=== PATIENT | female | born 1950 | race Caucasian/White ===

== ENCOUNTER 2016-05-19 09:13 | Inpatient (IN) | payer MEDICARE, OTHER ==
--- NOTE | ~2016-05-19 | CT57 ---
[facility] A Service of [facility] RADIOLOGY TEXT RESULTS PATIENT: LLUVIA HANNA LOCATION: A 214- : 52 UNIT #: [id number] AGE: [address]: Tash Galicia MD SEX: F ORDER DR: [id number] [facility] [address] [facility]. [place], [place] [address] [id number] I MR#: [id number] #: [id number] NAME: LLUVIA HANNA : 1950 SEX: F STUDY DATE/TIME: 05/20/2016 21:08 UNIT: A ROOM: 214 STUDY DESCRIPTION: CT Chest Wo Cont Attending Physician: Tash Galicia M.D. Ordering Physician: Gauri Pompa M.D. Primary Care Physician: Generic Doctor Not In System MEDICAL IMAGING REPORT This report is preliminary unless electronic signature is present EXAM CT chest without contrast DATE 05/20/2016 HISTORY Hypotension. Pneumonia. Sepsis for 2 days. Shortness of breath. Hypertension. COMPARISON AP portable chest 05/19/[address] chest for comparison. PROCEDURE 5 mm noncontrast axial images through the chest. Sagittal and coronal reformatted images were obtained. This CT exam was performed with one or more of the following radiation dose reduction techniques: automatic exposure control, adjustment of mA and/or kV according to patient size, and iterative reconstruction. FINDINGS Dense atelectasis or consolidation is present within the right middle lobe. Small bilateral pleural effusions are present. There is mild posterior left basilar atelectasis. Scattered geographic areas of air trapping are seen predominately within the upper lobes. Heart size is within normal limits. Extensive calcified lymph nodes are present within mediastinum and bilateral hilar regions in keeping with old granulomas disease. Mild coronary calcifications. Thyroid gland within normal limits. Calcifications are present within the left upper renal pole in an area of what appears to be cortical thinning or scarring. Degenerative changes of the right shoulder with calcified loose bodies in the joint space. Degenerative endplate changes in the thoracic spine. [facility] A Service of [facility] RADIOLOGY TEXT RESULTS PATIENT: LLUVIA HANNA LOCATION: [facility] 214-01 : 52 UNIT #: [id number] AGE: [address]: Tash Galicia MD SEX: F ORDER DR: IMPRESSION 1. Dense consolidation or atelectasis within the right middle lobe. 2. Mild posterior left basilar atelectasis. 3. Small bilateral pleural effusions. 4. Densely calcified mediastinal and hilar lymph nodes in keeping with the appearance of benign calcified granulomatous disease. 5. Mild coronary artery calcifications. 6. Benign-appearing left renal capsular calcifications. 7. Degenerative changes of right shoulder with calcified loose bodies in the joint. Dictated by... Aurelia Rosas M.D. THIS IS AN ELECTRONICALLY VERIFIED REPORT Aurelia Rosas M.D. at 05/21/2016 10:02 AM BRIAN/catracho TD: 05/21/2016 09:34 JOB #: [id number] MEDICAL IMAGING REPORT COPY
--- NOTE | ~2016-05-19 | EKG ---
PATIENT: LLUVIA HANNA UNIT #: [id number] Ventricular Rate: 74 BPM Atrial Rate: 74 BPM P-R Interval: 144 ms QRS Duration: 84 ms Q-T Interval: 448 ms QTC Calculation(Bezet): 497 ms P [place]: 61 degrees Calculated R [place]: 36 degrees Calculated T [place]: 15 degrees Diagnosis Line: Normal sinus rhythm Diagnosis Line: Low voltage QRS Diagnosis Line: Nonspecific ST abnormality Diagnosis Line: Prolonged QT Diagnosis Line: Abnormal ECG Diagnosis Line: When compared with ECG of 17-NOV-2015 22:54, Diagnosis Line: No significant change was found Diagnosis Line: Confirmed by CHLOÉ TRENT MD ([id number]) on Diagnosis Line: 05/20/2016 4:08:28 PM INTERPRETING MD: TWAN MIXON
--- NOTE | ~2016-05-19 | CO ---
Unit #: [id number] #: [id number] Patient: LLUVIA HANNA [id number] [address] [place], [place] [address] [id number] I MR#: [id number] NAME: LLUVIA HANNA ROOM: 214 Age: 66 Sex: F Admission Date: 05/19/2016 : 1950 Attending Physician: Tash Galicia M.D. Primary Care Physician: Generic Doctor Not In System CONSULTATION REPORT CHIEF COMPLAINT Pancytopenia, rectal thickening, extensive granuloma in the lung. HISTORY OF PRESENT ILLNESS This is a 66-year-old female who has cerebral palsy. The patient has significant lower extremity weakness, multiple surgeries. Patient came to hospital with abdominal pain, nausea, vomiting. The patient also has presyncope. She was admitted on sepsis protocol and she is improving. The patient had a CT of the abdomen and pelvis. It shows rectal thickening. There is a granuloma in the lung. The patient had a CT of the chest. I spoke with the radiologist. There is extensive granuloma. It is causing atelectasis and consolidation in the right middle lobe. There is no sign of malignancy. Her CBC showed WBC 4.0, hemoglobin 10.5, MCV 88 and platelets 110. Her creatinine is 0.4. LFTs are normal. Iron study and B12 normal. I repeated the peripheral smear. There are no blasts. There is some mild left shift. There is early segmentation. At present she is comfortable. REVIEW OF SYSTEMS CONSTITUTIONAL: No fever, no chills, no sweats, no weight loss. EYES: No visual symptoms. EARS, NOSE AND THROAT: There is no runny nose or sore throat or difficulty hearing. CARDIOVASCULAR: No chest pain. No shortness of breath. No palpitations. No orthopnea. No PND. RESPIRATORY: No cough. No wheezing. No hemoptysis. GASTROINTESTINAL: As mentioned above. GENITOURINARY: No urinary frequency, hesitancy or urgency. No blood in the urine. MUSCULOSKELETAL: No muscle or joint pain. NEUROLOGIC: No headache. No numbness or tingling. No weakness. No seizure. PSYCHIATRIC: No anxiety, depression or mood disturbance. ENDOCRINE: No excessive urination or thirst. DERMATOLOGIC: No rash or change in the skin. ALLERGIC/IMMUNOLOGIC: No symptoms. HEMATOLOGIC/LYMPHATIC: Denies any symptoms. Unit #: [id number] #: [id number] Patient: LLUVIA HANNA APARTMENT MAINTENANCE: As mentioned above. PAST MEDICAL HISTORY 1. Cerebral palsy. 2. Significant problem is immobile. 3. Mental retardation. 4. Hypertension. 5. Anemia. SURGICAL HISTORY Multiple foot surgeries. FAMILY HISTORY Negative for cancer. Her father had Parkinson disease. SOCIAL HISTORY No smoking, no alcohol, no drugs. She is immobile. She lives in a correction. MEDICATIONS Current medications include: 1. Levaquin. 2. Depakote. 3. Colace. 4. Lipitor. 5. Seroquel. 6. Claritin. PHYSICAL EXAMINATION VITAL SIGNS: Afebrile. Pulse 71, respiratory rate 20, O2 sat 97%, blood pressure 148/90. HEENT: Dry mucosa. CARDIOVASCULAR: S1, S2. RESPIRATORY: Bilateral wheezing. ABDOMEN: Soft. EXTREMITIES: No edema. LYMPH NODES: Normal. NEUROLOGICAL: Unable to perform. DIAGNOSTIC STUDIES LABORATORY: Labs as mentioned above. IMAGING: CT scan as mentioned above. ASSESSMENT AND PLAN Patient is a 66-year-old female with the following active issues: 1. Pancytopenia: This is most likely due to infection. I reviewed the peripheral smear. I followed the patient as an outpatient. In the future, will get a bone marrow biopsy. 2. Lungs: Patient has extensive granulomatous disease. I talked to two radiologists. There is no malignancy. 3. Rectum: There is a thickening in the rectum. In the future, he needs a colonoscopy to rule out malignancy. I will take care of this as an outpatient. I had a discussion with HIPS team. Unit #: [id number] #: [id number] Patient: LLUVIA HANNA Dictated by... Katie Adhikari TD: 05/21/2016 13:07 JOB #: [id number] CONSULTATION REPORT X Gauri Pompa MD CONSULTATION REPORT
--- NOTE | ~2016-05-19 | DS ---
Unit #: [id number] #: [id number] Patient: LLUVIA HANNA [id number] [address] [place], [place] [address] [id number] I MR#: [id number] NAME: LLUVIA HANNA ROOM: 214 Age: 66 Sex: F Admission Date: 05/19/2016 : 1950 Discharge Date: 05/21/2016 Attending Physician: Tash Galicia M.D. Primary Care Physician: Generic Doctor Not In System DISCHARGE SUMMARY PRIMARY CARE PHYSICIAN Dr. Leach. PRINCIPAL DIAGNOSES 1. Sepsis secondary to viral gastroenteritis, now resolved. 2. Hypotension secondary to sepsis, now resolved. 3. Questionable right middle lobe pneumonia versus atelectasis. 4. Viral induced pancytopenia. 5. Monocytosis, now resolved. 6. Moderate protein malnutrition. 7. Cerebral palsy. 8. Mild mental impairment. 9. Chronic immobility. FIRER BISQUE KILN Dr. Pompa, oncology. DIAGNOSTIC STUDIES IMAGING: Chest x-ray on May 19, 2016, with subsegmental atelectasis of the right middle lobe. CT scan of abdomen and pelvis without contrast on May 19, 2016, with concentric wall thickening of the mid to distal rectum without evidence of mass. Moderate stool burden within the colon noted. Hilar adenopathy was noted as an enlarged azygoesophageal recess node measuring 1.8 cm. Small bilateral pleural effusions noted. Atelectasis of the lower lobes noted. Mild cardiac enlargement noted. CT of the chest without contrast on May 19, 2016, with dense consolidation or atelectasis in the right middle lobe, posterior left basilar atelectasis noted, small bilateral pleural effusions, calcified mediastinal and hilar lymph nodes noted consistent with calcified granulomatous disease. Mild coronary artery calcifications. CLINICAL HISTORY AND HOSPITAL COURSE Ms. Hanna is a very nice, 66-year-old female brought to the emergency department with findings of low blood pressure at home. In the emergency department, patient underwent chest x-ray concerning for a questionable pneumonia versus atelectasis. Blood pressure upon arrival was also low at 80/56. She was afebrile and oxygen saturations were normal. Patient was subsequently admitted due to her hypotension and questionable pneumonia. Patient was placed on IV fluids and antihypertensives were held. Blood pressure has now normalized and, in fact, is mildly elevated in the high Unit #: [id number] #: [id number] Patient: LLUVIA HANNA 140s systolic. IV fluids have been discontinued and I will place her back on her home dose of hydrochlorothiazide. I am going to hold her lisinopril until seen in followup by her physician. This can be reinitiated at previous dose and/or lower dose if necessary. In regards to patient's pneumonia, clinically this really did not seem compatible. She has remained afebrile throughout the hospitalization and has not demonstrated any leukocytosis. In fact, she had a mild leukopenia that was likely secondary to the diarrhea with which she presented. CT scan of the chest, however, does reveal some questionable atelectasis versus pneumonia and I am going to treat her with a short course of Levaquin, but, clinically, I suspect this is atelectasis. Patient was found to be pancytopenic with a mild monocytosis upon presentation. Review of records also indicated a chronic thrombocytopenia, though patient's anemia was mildly new. This, in conjunction with some lymphadenopathy, prompted consult to Dr. Pompa. He reviewed her peripheral smear and she does not have any evidence of blasts. This is most likely reactive and patient will follow up with him as an outpatient. If she has persistent thrombocytopenia, he may perform a bone marrow biopsy. Patient is otherwise clinically stable. She will be discharged back home today with close followup. DISCHARGE CONDITION Stable. DISCHARGE STATUS Discharged to home. DISCHARGE MEDICATIONS 1. Tylenol 325 mg p.o. q.6 hours p.r.n. for pain or fever. 2. Depakote ER 500 mg b.i.d. 3. Claritin 10 mg daily p.r.n. for allergies. 4. Phenergan 25 mg p.o. q.6 hours p.r.n. for nausea/vomiting. 5. Atorvastatin 20 mg at bedtime. 6. SEROquel 200 mg at bedtime. 7. Colace 100 mg daily. 8. Hydrochlorothiazide 12.5 mg daily. 9. Ditropan XL 10 mg each morning. 10. Ranitidine 150 mg b.i.d. 11. Fosamax 70 mg p.o. weekly on Wednesdays. 12. Melatonin 3 mg at bedtime. 13. Levaquin 750 mg p.o. daily for another 5 days. DISCHARGE INSTRUCTIONS 1. Patient was instructed to follow a heart healthy diet. 2. She is chronically immobile, but continue activity she was doing at home previously. 3. FOLLOWUP: Patient will follow up with her primary care physician in approximately two weeks. She will follow up with Dr. Pompa in two weeks as well and repeat CBC at that time. Dictated by... Unit #: [id number] #: [id number] Patient: LLUVIA HANNA M.D. KEH/sariah TD: 05/22/2016 06:40 JOB #: [id number] DISCHARGE SUMMARY X Tash Galicia MD X DISCHARGE SUMMARY
--- NOTE | ~2016-05-19 | CR72 ---
[facility] A Service of [facility] RADIOLOGY TEXT RESULTS PATIENT: LLUVIA HANNA LOCATION: [facility] 318-01 : 52 UNIT #: [id number] AGE: [address]: Tash Galicia MD SEX: F ORDER DR: [id number] [facility] [address] [facility]. [place], [place] [address] [id number] MR#: [id number] Acc #: [id number] NAME: LLUVIA HANNA : 1950 SEX: F STUDY DATE/TIME: 05/19/2016 8:54 UNIT: [facility] ROOM: STUDY DESCRIPTION: CR Chest Single View Portable Attending Physician: Cely Bo M.D. Ordering Physician: Cely Bo M.D. Primary Care Physician: Generic Doctor Not In System MEDICAL IMAGING REPORT This report is preliminary unless electronic signature is present EXAM Portable chest. HISTORY Sepsis. Hypotension times 1 day. Patient with cerebral palsy. FINDINGS Portable view of the chest demonstrates low lung volumes. Band-like parenchymal opacity in the right mid lung suggests an area of subsegmental atelectasis or possible loculated effusion. Mild prominence of the pulmonary vasculature and interstitium. No blunting of the CP angles to suggest sizable effusions. This would favor that the right mid lung process represents segmental collapse. Heart and mediastinum unremarkable. No invasive tubes and lines. No pneumothorax. Potentially, the right mid lung opacity could represent an early infiltrate, though it tends to favor that this is lobar collapse or subsegmental collapse, as opposed to acute airspace disease. Dictated by... Lakeshia Alexis M.D. THIS IS AN ELECTRONICALLY VERIFIED REPORT Lakeshia Alexis M.D. at 05/20/2016 4:59 PM Eyal TD: 05/19/2016 16:31 JOB #: [id number] MEDICAL IMAGING REPORT COPY
--- NOTE | ~2016-05-19 | CT4 ---
[facility] A Service of [facility] RADIOLOGY TEXT RESULTS PATIENT: LLUVIA HANNA LOCATION: [facility] 318- : 52 UNIT #: [id number] AGE: [address]: Tash Galicia MD SEX: F ORDER DR: [id number] [facility] [address] [facility]. [place], [place] [address] [id number] I MR#: [id number] Acc #: [id number] NAME: LLUVIA HANNA : 1950 SEX: F STUDY DATE/TIME: 05/19/2016 11:08 UNIT: [facility] PCU ROOM: 318 STUDY DESCRIPTION: CT Abd and Pelv Wo Cont Attending Physician: Candace Gray M.D. Ordering Physician: Cely Bo M.D. Primary Care Physician: Generic Doctor Not In System MEDICAL IMAGING REPORT This report is preliminary unless electronic signature is present EXAM CT abdomen and pelvis 05/19/2016 HISTORY Unable to bring left arm above head, global supply chain director states patient feels bad, low blood pressure today, complains of weakness today. History of chest pain. Cerebral palsy. TECHNIQUE CT of the abdomen and pelvis performed without administration of oral or intravenous contrast. Study somewhat limited in the absence of both oral and enteric contrast. This CT exam was performed with one or more of the following radiation dose reduction techniques: automatic exposure control, adjustment of mA and/or kV according to patient size, and iterative reconstruction. COMPARISON STUDIES I have no prior cross-sectional imaging of the chest or abdomen for comparison. FINDINGS CT ABDOMEN: There is mild cardiac enlargement. Small bilateral pleural effusions. Not drainable fluid collections. Patchy and band-like airspace disease bilateral lung bases probably atelectatic in nature. Components of basilar pneumonitis not excluded. Prominence of the bilateral incompletely visualized hilar regions concerning for bilateral hilar adenopathy. There are some calcified lymph nodes present, felt to reflect prior exposure to granulomatous disease but there is increased noncalcified soft tissue present as well. The assumed adenopathy is nonspecific. Benign and malignant etiologies may be considered. Findings are best further evaluated with contrast-enhanced CT of chest. Comparison with prior studies recommended. There is a discrete enlarged 1.8 cm STS. [facility] A Service of [facility] & [facility] RADIOLOGY TEXT RESULTS PATIENT: LLUVIA HANNA [id number] [birth year] UNIT #: [id number] AGE: [address]: Tash Galicia MD SEX: F ORDER DR: short-axis azygoesophageal recess node. The liver, gallbladder, spleen, pancreas, adrenal glands unremarkable. Right kidney and ureter unremarkable. The left kidney shows some cortical loss and parenchymal calcifications in the upper pole, felt to be chronic in time course and probably reflecting remote vascular insult or episode of infection with dystrophic calcification. No left-sided hydronephrosis or intra ureteral calculi. No bladder calculi. CT PELVIS: Wong catheter in decompressed urinary bladder. Uterus and adnexal regions unremarkable for a patient this age. No fluid collections in the pelvis. No pelvic or retroperitoneal adenopathy. The distal esophagus, stomach, small bowel are unremarkable. Patient appears to retain normal appendix. Moderate stool burden seen throughout the colon. There is no pathologic dilatation. There is mild concentric thickening of the [id number] rectal wall. Eccentric mass lesion not identified. The rectal wall measures up to about 1 cm in thickness. This may be a reflection of muscular hypertrophy. Inflammatory thickening not excluded but there is no significant perirectal inflammatory change. The appearance would be unusual for neoplastic lesion but neoplasm is not excluded. Assessment with contrast enema or proctoscopy recommended when clinically appropriate for the patient. Aorta normal caliber. Degenerative changes in the spine. No acute-appearing bony abnormality. IMPRESSION 1. There is generalized concentric wall thickening in the mid to distal rectum without eccentric mass lesion seen. Rectal wall measures up to about 1 cm in thickness. Nonspecific appearance which may reflect muscular hypertrophy, rectal inflammation, or neoplasm. Assessment with contrast enema and/or proctoscopy strongly recommended. 2. Moderate stool burden in colon without pathologic dilatation. Possibly physiologic in nature. Correlate with any clinical indications of constipation. It might in part be related to the wall thickening of the rectum and potentially some degree of functional partial obstruction. 3. Small bowel and appendix unremarkable. 4. Abnormal appearance of the incompletely visualized thorax. Findings concerning for hilar adenopathy. See discussion above. Abnormal soft tissue prominence in the bilateral hilar regions. Assessment with contrast-enhanced CT of chest recommended. I have no prior studies for comparison. There is a discrete enlarged azygoesophageal recess node measuring 1.8 cm short axis. 5. Small bilateral pleural effusions. Not drainable fluid collections. Patchy and linear/band-like densities bilateral lung bases likely predominately atelectasis. Some components of pneumonitis may be present. The apparent mediastinal and hilar adenopathy is disproportionately greater than would be anticipated for inflammatory process at the lung bases. 6. Mild cardiac enlargement. 7. Calcifications in the upper pole of the left kidney likely dystrophic STS. [facility] A Service of [facility] RADIOLOGY TEXT RESULTS PATIENT: LLUVIA HANNA LOCATION: [facility] 318-01 : 52 UNIT #: [id number] AGE: [address]: Tash Galicia MD SEX: F ORDER DR: and related to area of localized cortical atrophy likely due to prior vascular insult or prior infection. 8. Spinal degenerative changes. No acute-appearing bony abnormality. Dictated by... Claus Stanley M.D. THIS IS AN ELECTRONICALLY VERIFIED REPORT Claus Stanley M.D. at 05/20/2016 5:26 PM Samanta TD: 05/19/2016 18:06 JOB #: [id number] MEDICAL IMAGING REPORT COPY
--- NOTE | ~2016-05-19 | HP ---
Unit #: [id number] #: [id number] Patient: LLUVIA HANNA [id number] [facility] [address]. [place], [place] [address] [id number] MR#: [id number] NAME: LLUVIA HANNA ROOM: Age: 66 Sex: F Admission Date: 05/19/2016 : 1950 Attending Physician: Cely oB M.D. Primary Care Physician: Generic Doctor Not In System HISTORY AND PHYSICAL CHIEF COMPLAINT Feeling bad. Low blood pressure. HISTORY OF PRESENT ILLNESS The patient is a 66-year-old female with a past medical history of cerebral palsy, mental retardation, immobility, who presented to the emergency department for evaluation of the above. History is obtained from chart review and discussion with the ER staff, as well as from the patient. Apparently, the patient has had diarrhea for the past two days. She reports two to three bouts of nonbloody diarrhea within the past 24 hours. She denies any vomiting. She denies any abdominal pain. She has not had fever. She denies any cough or cold symptoms. She states that she felt weak this morning. She states that she felt somewhat lightheaded and like she might pass out. Apparently, her caregiver took her blood pressure and noted it to be 60/40. She brought her to the emergency department for further evaluation. In the emergency department, initial temperature was 98.2, pulse 67, respirations 23. Blood pressure was 80/56. Oxygen saturation 92% on room air. She was given two liters of normal saline. Most recent blood pressure was 129/77. A chest x-ray shows findings concerning for possible pneumonia. CT of the abdomen and pelvis is pending. Lactic acid 2.2. She is being admitted to [facility] for evaluation and further treatment. PAST MEDICAL HISTORY 1. Hospitalized in [place], [place] (no records). 2. Cerebral palsy with immobility. 3. Mental retardation. 4. Hypertension. PAST SURGICAL HISTORY 1. Foot surgery. 2. Some type of brain surgery per the patient (no records). SOCIAL HISTORY The patient has a caregiver. There is no tobacco or alcohol abuse. She is immobile. FAMILY HISTORY Notable for her mother having some type of malignancy. Her dad had Parkinson. Unit #: [id number] #: [id number] Patient: LLUVIA HANNA ALLERGIES Tuberculin. HOME MEDICATIONS 1. Claritin 10 mg daily. 2. PRN Phenergan 25 mg q.6 hours p.r.n. 3. Naproxen 500 mg twice daily p.r.n. 4. Melatonin at bedtime. 5. Quetiapine 200 mg at bedtime. 6. Atorvastatin 20 mg at bedtime. 7. Oxybutynin 10 mg in the morning. 8. Zestril 40 mg in the morning. 9. Depakote 500 mg twice daily. 10. Hydrochlorothiazide 12.5 mg daily. 11. Ranitidine 150 mg twice daily. 12. Colace 100 mg daily. 13. Fosamax 70 mg weekly. 14. Tylenol 325 mg q.6 hours p.r.n. REVIEW OF SYSTEMS A complete review of systems is negative except as indicated in the HPI. PHYSICAL EXAMINATION GENERAL APPEARANCE: The patient is a female who is awake and alert, in no acute distress. VITAL SIGNS: Temperature 98.2. Pulse 67. Respirations 23. Blood pressure 80/56. Most recently, 129/77. Oxygen saturation is 92% on room air. HEENT: The head is atraumatic. Mucous membranes are dry. NECK: Supple. Trachea is midline. CARDIOVASCULAR: Regular rate and rhythm. LUNGS: Decreased breath sounds with a few scattered rhonchi. Breathing is not labored with conversation. ABDOMEN: Soft, nontender with bowel sounds present in all four quadrants. EXTREMITIES: Nontender with no pedal edema. NEUROLOGIC: The patient is awake and alert. She follows commands. PSYCHIATRIC: Mood and affect are normal. The patient is cooperative. SKIN: Of examined areas is warm and dry. DIAGNOSTIC STUDIES LABORATORY: Complete blood count notable for WBC count of 3, hemoglobin and hematocrit 11.6 and 34.3 respectively. Platelets are 111. Lactic acid is 2.2. Comprehensive metabolic panel notable for sodium of 134, potassium 3.3, glucose 148. Calcium is 8 but corrects when albumin of 2.8 is accounted for. Total protein 5.5. Magnesium is 1.7. INR is 1.1. Urinalysis notable for trace leukocyte esterase. Troponin is less than 0.05. IMAGING: Chest x-ray shows possible atelectasis versus infiltrate involving the right lung. CT of the abdomen and pelvis is pending at the time of this dictation. CARDIOVASCULAR: EKG shows normal sinus rhythm with rate of 74 beats per minute. ASSESSMENT The patient is a 66-year-old female with: 1. Pneumonia, community acquired, concerning for possible aspiration. Unit #: [id number] #: [id number] Patient: LLUVIA HANNA 2. Sepsis with lactic acid 2.2. 3. Hypokalemia. 4. Cerebral palsy. 5. Mental retardation. 6. Immobility. PLAN 1. Admit to intermediate level. 2. Normal saline at 100 mL/hour. 3. NPO until speech evaluation. 4. Speech Therapy to evaluate and treat. 5. Blood cultures x2. 6. Sputum culture and sensitivity. 7. Procalcitonin level. 8. Supplemental oxygen two to four liters to maintain saturations greater than 92%. 9. DuoNeb q.4 hours. 10. Levaquin IV pending further workup. 11. Sepsis protocol with repeat lactic acid. 12. Follow up results of CT abdomen and pelvis. 13. Check magnesium level. 14. Potassium and magnesium protocol. 15. Serial cardiac enzymes. 16. Check Depakote level. 17. Stool studies including ova and parasites, C. diff., culture and sensitivities. 18. PRN Tylenol. 19. PRN Zofran. 20. Repeat labs in the morning. 21. SCDs for DVT prophylaxis. 22. Additional workup and consultants based on above. 23. We will discuss with family and/or caregiver when they arrive. Dictated by Katie Bach/estephanie TD: 05/19/2016 12:28 JOB #: [id number] HISTORY AND PHYSICAL X Candace Gray MD X HISTORY AND PHYSICAL
[2016-05-19 08:54] LABS: BASOPHIL% 0.7 % (0-2.5); EOSINOPHIL# 0.1 X10e3 (0-0.7); EOSINOPHIL% 3.2 % (0.0-7.0); HEMATOCRIT 34.3 % (35.0-45.0); HEMOGLOBIN 11.6 gm/dL (12.0-16.0); LYMPHOCYTE# 0.5 X10e3 (1.0-3.5); LYMPHOCYTE% 17.9 % (17.0-45.0); MEAN CELL VOLUME 89.1 FL (83-96); MEAN CORPUSCULAR HEMOGLOBIN 30.1 PG (28-34); MEAN CORPUSCULAR HGB CONC 33.8 g/dL (30-36); MEAN PLATELET VOLUME 9.3 FL (6.5-11.5); MONOCYTE# 0.5 X10e3 (0-1.0); MONOCYTE% 15.9 % (3.0-12.0); NEUTROPHIL# 1.9 X10e3 (1.5-7.1); NEUTROPHIL% 62.3 % (40-75); PLATELET COUNT 111 X10e3 (140-420); RED BLOOD COUNT 3.85 X10e (3.90-5.30); RED CELL DISTRIBUTION WIDTH 14.1 % (11.0-15.5)
[2016-05-19 08:58] LABS: DIFF IND NO
[2016-05-19 09:09] LABS: URINE SOURCE CLEAN CATCH
[2016-05-19 09:14] LABS: ALBUMIN SERUM 2.8 g/dL (3.5-5.0); ALKALINE PHOSPHATASE 54 U/L (32-92); ALT (SGPT) 13 U/L (10-40); AST (SGOT) 22 U/L (10-42); BILIRUBIN, DIRECT 0.2 mg/dL (0.0-0.2); BILIRUBIN,INDIRECT 0.1 mg/dL (0.0-0.9); BILIRUBIN,TOTAL 0.3 mg/dL (0.2-2.0); BLOOD UREA NITROGEN 22 mg/dL (9-23); CARBON DIOXIDE 23 mmol/L (22-31); CHLORIDE 103 mmol/L (100-111); CREATININE SERUM 0.5 mg/dL (0.6-1.4); GLOM FILT RATE Estimated ABOVE60 mL/min (>60); GLUCOSE FASTING 148 mg/dL (70-110); MAGNESIUM 1.7 mg/dL (1.6-3.0); POTASSIUM 3.3 mmol/L (3.5-5.1); PROTEIN TOTAL SERUM 5.5 g/dL (6.0-8.3); SODIUM 134 mmol/L (135-145)
[2016-05-19 09:15] LABS: URINE APPEARANCE CLEAR; URINE BILIRUBIN NEG (NEG); URINE BLOOD NEG (NEG); URINE COLOR YELLOW; URINE GLUCOSE NEG (NEG); URINE KETONE TRACE (NEG); URINE LEUKOCYTE ESTERASE TRACE (NEG); URINE NITRATE NEG (NEG); URINE PROTEIN TRACE (NEG)
[2016-05-19 09:17] LABS: URINE BACTERIA AUWI NEG (NEGATIVE); URINE SQUAMOUS EPITHELIAL CELL OCC /[HPF]
[2016-05-19 09:19] LABS: INR 1.1; PARTIAL THROMBOPLASTIN TIME 25.7 SECONDS (23.5-31.3); PROTHROMBIN TIME (PATIENT) 11.5 SECONDS (9.6-11.5)
[2016-05-19 09:32] LABS: CULTURE INDICATED? NO
[2016-05-19 09:34] LABS: URINE MUCUS PRESENT
[2016-05-19 09:41] LABS: POC - CKMB <1.0 ng/mL (0.0-7.9); POC - TROPONIN <0.05 ng/mL (<=0.05)
[2016-05-19] MEDS ORDERED: CLARITIN10 M2 PO (11:05)
[2016-05-19] MEDS ORDERED: PHENERGAN25 MG PO (11:06)
[2016-05-19] MEDS ORDERED: NAPROXEN500 M1 PO (11:06)
[2016-05-19] MEDS ORDERED: QUETIAPINE FUM200 MG PO (11:07)
[2016-05-19] MEDS ORDERED: MELATONIN3 MG PO (11:07)
[2016-05-19] MEDS ORDERED: ATORVASTATIN CA20 MG PO (11:08)
[2016-05-19] MEDS ORDERED: DITROPAN XL5 M1 PO (11:09)
[2016-05-19] MEDS ORDERED: DIVALPROEX SOD500 M1 PO (11:09)
[2016-05-19] MEDS ORDERED: LISINOPRIL PO (11:09)
[2016-05-19] MEDS ORDERED: HYDROCHLOROTH12.5 M1 PO (11:10)
[2016-05-19] MEDS ORDERED: RANITIDINE HCL150 M1 PO (11:10)
[2016-05-19] MEDS ORDERED: COLACE PO (11:11)
[2016-05-19] MEDS ORDERED: ACETAMINOPHEN325 MG PO (11:12)
[2016-05-19] MEDS ORDERED: FOSAMAX70 MG PO (11:12)
[2016-05-19] MEDS ORDERED: AMLODIPINE BESYL5 MG PO (11:42)
[2016-05-19 13:25] LABS: MAGNESIUM 1.8 mg/dL (1.6-3.0)
[2016-05-19 13:34] LABS: PROCALCITONIN <0.05 NG/ML
[2016-05-19 15:23] LABS: CK TOTAL 53 IU/L (26-140)
[2016-05-19 22:24] LABS: CK TOTAL 57 IU/L (26-140)
[2016-05-20 05:51] LABS: BASOPHIL% 0.3 % (0-2.5); EOSINOPHIL# 0.1 X10e3 (0-0.7); EOSINOPHIL% 1.6 % (0.0-7.0); HEMATOCRIT 31.7 % (35.0-45.0); HEMOGLOBIN 10.7 gm/dL (12.0-16.0); LYMPHOCYTE# 0.7 X10e3 (1.0-3.5); LYMPHOCYTE% 19.5 % (17.0-45.0); MEAN CELL VOLUME 88.9 FL (83-96); MEAN CORPUSCULAR HEMOGLOBIN 29.9 PG (28-34); MEAN CORPUSCULAR HGB CONC 33.7 g/dL (30-36); MEAN PLATELET VOLUME 9.6 FL (6.5-11.5); MONOCYTE# 0.6 X10e3 (0-1.0); MONOCYTE% 16.4 % (3.0-12.0); NEUTROPHIL# 2.1 X10e3 (1.5-7.1); NEUTROPHIL% 62.2 % (40-75); PLATELET COUNT 112 X10e3 (140-420); RED BLOOD COUNT 3.56 X10e (3.90-5.30); RED CELL DISTRIBUTION WIDTH 14.1 % (11.0-15.5); WHITE BLOOD COUNT 3.4 X10e3 (4.0-10.5)
[2016-05-20 06:03] LABS: DIFF IND NO
[2016-05-20 06:25] LABS: INR 1.1; PROTHROMBIN TIME (PATIENT) 11.5 SECONDS (9.6-11.5)
[2016-05-20 06:37] LABS: ALBUMIN SERUM 2.6 g/dL (3.5-5.0); ALKALINE PHOSPHATASE 47 U/L (32-92); ALT (SGPT) 12 U/L (10-40); AST (SGOT) 18 U/L (10-42); BILIRUBIN,TOTAL 0.6 mg/dL (0.2-2.0); BLOOD UREA NITROGEN 10 mg/dL (9-23); BUN/CREATININE RATIO 33.33; CALCIUM SERUM 8.2 mg/dL (8.4-10.2); CARBON DIOXIDE 24 mmol/L (22-31); CHLORIDE 110 mmol/L (100-111); CREATININE SERUM 0.3 mg/dL (0.6-1.4); GLOM FILT RATE Estimated ABOVE60 mL/min (>60); GLUCOSE FASTING 100 mg/dL (70-110); POTASSIUM 3.6 mmol/L (3.5-5.1); SODIUM 140 mmol/L (135-145)
[2016-05-21 05:24] LABS: BASOPHIL% 0.9 % (0-2.5); EOSINOPHIL# 0.1 X10e3 (0-0.7); EOSINOPHIL% 2.9 % (0.0-7.0); HEMATOCRIT 31.1 % (35.0-45.0); HEMOGLOBIN 10.5 gm/dL (12.0-16.0); LYMPHOCYTE# 0.8 X10e3 (1.0-3.5); LYMPHOCYTE% 19.4 % (17.0-45.0); MEAN CELL VOLUME 88.6 FL (83-96); MEAN CORPUSCULAR HEMOGLOBIN 29.9 PG (28-34); MEAN CORPUSCULAR HGB CONC 33.7 g/dL (30-36); MEAN PLATELET VOLUME 9.6 FL (6.5-11.5); MONOCYTE# 0.7 X10e3 (0-1.0); MONOCYTE% 16.6 % (3.0-12.0); NEUTROPHIL# 2.4 X10e3 (1.5-7.1); NEUTROPHIL% 60.2 % (40-75); PLATELET COUNT 110 X10e3 (140-420); RED BLOOD COUNT 3.51 X10e (3.90-5.30); RED CELL DISTRIBUTION WIDTH 14.5 % (11.0-15.5)
[2016-05-21 05:31] LABS: DIFF IND NO
[2016-05-21 06:49] LABS: FOLATE (FOLIC ACID) >23.6 ng/mL (>5.8)
[2016-05-21 06:57] LABS: ALBUMIN SERUM 2.6 g/dL (3.5-5.0); ALKALINE PHOSPHATASE 53 U/L (32-92); ALT (SGPT) 13 U/L (10-40); AST (SGOT) 13 U/L (10-42); BILIRUBIN,TOTAL 0.4 mg/dL (0.2-2.0); BLOOD UREA NITROGEN 12 mg/dL (9-23); CALCIUM SERUM 8.5 mg/dL (8.4-10.2); CARBON DIOXIDE 24 mmol/L (22-31); CHLORIDE 111 mmol/L (100-111); CREATININE SERUM 0.4 mg/dL (0.6-1.4); GLOM FILT RATE Estimated ABOVE60 mL/min (>60); GLUCOSE FASTING 97 mg/dL (70-110); IRON SERUM 55 ug/dL (28-170); POTASSIUM 3.8 mmol/L (3.5-5.1); PROTEIN TOTAL SERUM 5.2 g/dL (6.0-8.3); SODIUM 141 mmol/L (135-145); TOTAL IRON BINDING CAPACITY 233 ug/dL (269-535); TRANSFERRIN 166 mg/dL (192-382); TRANSFERRIN SATURATION 24 % (20-50)
[2016-05-21] MEDS ORDERED: LEVAQUIN250 MG PO (17:55)
== END 2016-05-21 19:15 | disposition home or self-care (01) | DRG 871 ==
LOC: CED 09:13 → CEDOF 11:50 → C3A PCU 17:57 → C2A 05-20 18:27
PROVIDERS: Family Medicine; Internal Medicine; Internal Medicine Hematology; Student in an Organized Health Care Education/Training Program
DX: A41.9 Sepsis, unspecified organism (principal); J18.9 Pneumonia, unspecified organism; D61.818 Other pancytopenia; E44.0 Moderate protein-calorie malnutrition; J84.10 Pulmonary fibrosis, unspecified; J98.11 Atelectasis; E87.6 Hypokalemia; G80.9 Cerebral palsy, unspecified; M62.3 Immobility syndrome (paraplegic); I10 Essential (primary) hypertension; D64.9 Anemia, unspecified; F70 Mild intellectual disabilities; D72.821 Monocytosis (symptomatic); Z68.32 Body mass index [BMI] 32.0-32.9, adult
CPT/HCPCS: 36415; 51702; 71010; 71250; 74176; 80048; 80053; 80076; 80164; 81003; 82308; 82550; 82553; 82607; 82728; 82746; 83540; 83550; 83605; 83735; 84484; 85025; 85610; 85730; 87040; 92610; 93005; 94640; 94760; 96360; 99285; G8996-GN; G8997-GN; G8998-GN; J1447; J1956; J3475